=== PATIENT | female | born 1955 | race Caucasian/White ===

== ENCOUNTER 2017-06-09 10:05 | Observation (INO) | payer OTHER ==
[~2017-06-09] VITALS: Ht 172.7 cm; Wt 75.0 kg
--- NOTE | ~2017-06-09 | CR72 ---
[facility] A Service of [facility] & [facility] RADIOLOGY TEXT RESULTS PATIENT: DREW LOOMIS LOCATION: [facility] : 59 UNIT #: [id number] AGE: [address]: Rishabh Garcia MD SEX: F ORDER DR: [id number] [facility] [address] [place], [place] [address] [id number] E MR#: [id number] Acc #: [id number] NAME: DREW LOOMIS : 1955 SEX: F STUDY DATE/TIME: 06/09/2017 10:44 UNIT: [facility] ROOM: STUDY DESCRIPTION: CR Chest Single View Portable Attending Physician: Rishabh Garcia M.D. Ordering Physician: Rishabh Garcia M.D. Primary Care Physician: Cricket Rosario M.D. MEDICAL IMAGING REPORT This report is preliminary unless electronic signature is present EXAM Chest portable, 06/09/2017 10:44 hours HISTORY 62-year-old woman complaining of anterior chest pain today. History of hypertension. COMPARISON 09/26/2011 FINDINGS Portable upright chest demonstrates heart size within normal limits. Aortic contours are normal. Pulmonary vascularity is within normal limits. Lung volumes are increased compared to prior study. There are calcified granulomatous changes. No definite edema, pneumonia or effusion. IMPRESSION Lung volumes are increased compared to 09/26/2011. There are no acute cardiopulmonary findings. Dictated by... Belen Echevarria M.D. THIS IS AN ELECTRONICALLY VERIFIED REPORT Belen Echevarria M.D. at 06/09/2017 2:31 PM Amberly TD: 06/09/2017 11:43 JOB #: [id number] MEDICAL IMAGING REPORT Page 1 of 1 COPY
--- NOTE | ~2017-06-09 | CT16 ---
[facility] A Service of [facility] & [facility] RADIOLOGY TEXT RESULTS PATIENT: DREW LOOMIS LOCATION: [facility] 549-01 : [birth year] UNIT #: [id number] AGE: [address]: Yvonne Lynne MD SEX: F ORDER DR: [id number] [facility] [address] [place], [place] [address] [id number] E MR#: [id number] Acc #: [id number] NAME: DREW LOOMIS : 1955 SEX: F STUDY DATE/TIME: 06/09/2017 11:47 UNIT: [facility] ROOM: STUDY DESCRIPTION: CT Angio Chest for PE Attending Physician: Rishabh Garcia M.D. Ordering Physician: Rishabh Garcia M.D. Primary Care Physician: Cricket Rosario M.D. MEDICAL IMAGING REPORT This report is preliminary unless electronic signature is present EXAM CT angiogram of the chest INDICATIONS Chest pain since this morning. TECHNIQUE Axial CT images were obtained from the thoracic inlet through the dome of the diaphragm and following administration of intravenous contrast material. Following this 3-D reformatted images were obtained. This CT exam was performed with one or more of the following radiation dose reduction techniques: automatic control, adjustment of mA and/or kV according to patient size, and iterative reconstruction. FINDINGS No acute pulmonary thromboembolus is seen. Thoracic aorta measures within normal size limits. Patient does have fairly extensive atherosclerotic involvement of the thoracic aorta. There is no pleural or pericardial effusion. The thyroid gland trachea and esophagus appear unremarkable. Background emphysematous changes are present. There are some tree-in-bud infiltrates identified within the upper lobes bilaterally. A few punctate noncalcified pulmonary nodules are seen within the right lung mediastinal lymph nodes do not appear pathologically enlarged. No acute abnormality is seen within the upper abdomen. Review of bony windows does not demonstrate any aggressive osseous abnormalities. IMPRESSION 1. No acute pulmonary thromboembolus seen. 2. Thoracic aorta is normal in caliber although there is atherosclerotic involvement of the aorta. 3. A few tree-in-bud infiltrates identified at the lung apices [facility] A Service of [facility] & [facility] RADIOLOGY TEXT RESULTS PATIENT: DREW LOOMIS LOCATION: [facility] 549-01 : [birth year] UNIT #: [id number] AGE: [address]: Yvonne Lynne MD SEX: F ORDER DR: bilaterally as well as two tiny noncalcified pulmonary nodules seen within the right lung, these are favored to be infectious or inflammatory in etiology. Follow up CT in 1 year is suggested given background emphysematous changes Dictated by... Jennifer Santillan M.D. THIS IS AN ELECTRONICALLY VERIFIED REPORT Jennifer Santillan M.D. at 06/09/2017 5:06 PM SUSANA/isabel TD: 06/09/2017 13:36 JOB #: [id number] MEDICAL IMAGING REPORT Page 1 of 1 COPY
--- NOTE | ~2017-06-09 | EKG ---
PATIENT: DREW LOOMIS UNIT #: [id number] Ventricular Rate: 61 BPM Atrial Rate: 61 BPM P-R Interval: 144 ms QRS Duration: 152 ms Q-T Interval: 508 ms QTC Calculation(Bezet): 511 ms P [place]: 43 degrees Calculated R [place]: 8 degrees Calculated T [place]: -74 degrees Diagnosis Line: Normal sinus rhythm Diagnosis Line: Left bundle branch block Diagnosis Line: Abnormal ECG Diagnosis Line: When compared with ECG of 28-SEP-2011 06:17, Diagnosis Line: no Diagnosis Line: Confirmed by TOM LOCK MD ([id number]) on Diagnosis Line: 06/09/2017 3:55:00 PM INTERPRETING MD: ZAC
--- NOTE | ~2017-06-09 | HP ---
Unit #: [id number] #: [id number] Patient: DREW LOOMIS [id number] [facility]. [place] [id number] [place], [place] [address] [id number] I MR#: [id number] NAME: DREW LOOMIS ROOM: 23670 Age: 62 Sex: F Admission Date: 06/09/2017 : 1955 Attending Physician: Yvonne Lynne M.D. Primary Care Physician: Cricket Rosario M.D. HISTORY AND PHYSICAL HISTORY OF PRESENT ILLNESS This is a 52-year-old white female who was seen by our group in 2010 for chest pain. She underwent Lexiscan Cardiolite stress test which was abnormal, with anteroseptal and inferoapical wall ischemia. Her ejection fraction was 40%-45% per echocardiogram. She underwent cardiac catheterization and was found to have angiographically normal coronaries. The patient was discharged home on beta mack and MICHELE inhibitor, but failed to follow up with cardiology. She presented to the emergency room with substernal chest pressure that was not radiating to her neck, arm or jaw. Chest pressure awakened her from sleep at 6 a.m. She had associated dyspnea, nausea and vomiting. The chest pain was constant, with no alleviating or aggravating factors. She took an aspirin at home. She came to the emergency room for evaluation, where she was found to have negative cardiac enzymes and troponin. Her electrocardiogram shows old left bundle branch block. There were no acute ischemia changes. She was given three sublingual nitroglycerin that did not relieve her chest pain. There was also no relief with morphine. CTA of the chest shows no evidence of pulmonary embolism. She was hypertensive with blood pressure 198/81 mmHg. She was also noted to be bradycardic, and heart rate has been as low at 30 beats per minute. PAST MEDICAL HISTORY 1. Two-dimensional echocardiogram 09/27/2011 shows an ejection fraction of 40%-45% with mild tricuspid regurgitation. There was significant echo dropout noted. Cannot rule out PFO or AFB. 2. Lexiscan Cardiolite stress test 09/27/2011 showed a small area of stress induced ischemia involving the anteroseptal and inferoapical wall of the left ventricle. Ejection fraction 47%. Septal (1) . 3. Cardiac catheterization 09/28/[address] Alvarado at [facility]. [facility] revealed angiographically normal coronaries. Ejection fraction of 45%. 4. Hyperlipidemia. 5. Chronic left bundle branch block. 6. Nonischemic cardiomyopathy. 7. History of Grave disease. 8. Former smoker. PAST SURGICAL HISTORY 1. Cholecystectomy. 2. Appendectomy. 3. Uterine ablation. 4. Left breast lumpectomy. 5. Cervical disc decompression. Unit #: [id number] #: [id number] Patient: DREW LOOMIS SOCIAL HISTORY The patient is a . She quit smoking five year ago, but previously smoked up to three packs of cigarettes a day. She denies illicit drug and alcohol use. She states she lives a sedentary lifestyle. FAMILY HISTORY Positive for coronary artery disease in her father. ALLERGIES Codeine. HOME MEDICATIONS No current medications. REVIEW OF SYSTEMS CONSTITUTIONAL: Negative for fever or chills. Has no weight gain or weight loss. HEENT: No headache. No vision changes or difficulty with swallowing. No dizziness. CARDIOVASCULAR: Chest pain as described in the history of present illness. Denies palpitations. No paroxysmal nocturnal dyspnea or orthopnea. Denies syncope or near syncope. RESPIRATORY: Dyspnea that accompanies chest pain. No cough or hemoptysis. GASTROINTESTINAL: Has some slight epigastric pain with nausea and vomiting. No constipation or melena. EXTREMITIES: Denies lower extremity edema. PHYSICAL EXAMINATION GENERAL: This is a 62-year-old white female who is in no acute respiratory distress. VITALS: Blood pressure 198/81, heart rate 50, temperature 98.0, BMI 25. NECK: Trachea midline. No thyromegaly or lymphadenopathy. No jugular venous distension. HEART: S1 and S2. Heart sounds are normal. No murmurs, rubs or clicks. Regular rate and rhythm. Noted to be bradycardic. ABDOMEN: Tender in the epigastric area with palpation. No organomegaly. Bowel sounds are present. EXTREMITIES: Pedal pulses are palpable without leg edema. SKIN: Warm and dry. NEUROLOGIC: She is awake, alert and oriented. There is no focal weakness. DIAGNOSTIC STUDIES IMAGING: Chest x-ray shows low lung volumes. There is no edema, pneumonia or effusion. CT angiogram of the chest shows no acute thromboembolism. There are free tree-in-bud infiltrates identified in the lung apices bilaterally. There are two noncalcified pulmonary nodules in the right lung. Follow up in one year is suggested, given background emphysematous changes. LABORATORY: Glucose 142, BUN 15, creatinine 0.8, sodium 139, potassium 4.3, CK-MB 1.5, troponin less than 0.05 times 2. White blood cell count 13.8, hemoglobin 15.5, hematocrit 45.8, platelet count 305. CARDIOVASCULAR: Electrocardiogram normal sinus rhythm with a rate of 63 Unit #: [id number] #: [id number] Patient: DREW LOOMIS beats per minute with left bundle branch block. No acute ischemic changes. ASSESSMENT 1. Chest pain. Questionable etiology. 2. Normal coronaries per cardiac catheterization in 2010. 3. Chronic left bundle branch block. 4. Nonischemic cardiomyopathy with an ejection fraction of 40%-45%. 5. Hyperlipidemia. 6. Questionable chronic obstructive pulmonary disease. PLAN 1. Cardiology was asked to see the patient in the emergency room for chest pain. There was questionable etiology of the patient's chest pain. She had normal coronaries per cardiac catheterization in 2010. Will continue to trend cardiac enzymes, troponin, electrocardiogram to rule out myocardial infarction. 2. Start the patient on MICHELE inhibitor, given hypertension. 3. Lipid profile and TSH will be obtained. 4. Will repeat two-dimensional echocardiogram to evaluate left ventricular systolic function. 5. Monitor heart rate for significant bradyarrhythmias. 6. If the patient has negative troponin and no changes in electrocardiogram, will plan to discharge home in the a.m. 7. CT of the chest will need to be followed up in one year for pulmonary nodules. Dictated by Yovany Campoverde A.P.R.N. for Marco Lomax TD: 06/09/2017 15:52 JOB #: [id number] CC: [facility] HISTORY AND PHYSICAL Page 1 of 1 X Yovany Campoverde APRN HISTORY AND PHYSICAL
--- NOTE | ~2017-06-09 | DS ---
Unit #: [id number] #: [id number] Patient: DREW LOOMIS [id number] [address] [address] [id number] I MR#: [id number] NAME: DREW LOOMIS ROOM: 549 Age: 62 Sex: F Admission Date: 06/09/2017 : 1955 Discharge Date: 06/10/2017 Attending Physician: Yvonne Lynne M.D. Primary Care Physician: Cricket Rosario M.D. DISCHARGE SUMMARY DISCHARGE DIAGNOSES 1. Chest pain, atypical. 2. Cardiac catheterization in 2010 showed normal coronaries. 3. Chronic left bundle branch block. 4. Nonischemic cardiomyopathy with ejection fraction 40% to 45%. 5. Hypertension. 6. Hyperlipidemia. 7. Questionable chronic obstructive pulmonary disease. 8. Reformed tobacco user. DISCHARGE MEDICATIONS 1. Zestril 10 mg p.o. twice a day. 2. Aspirin 81 mg p.o. daily. 3. Lipitor 40 mg p.o. once a day. HOSPITAL COURSE This is a 52-year-old, female who was first seen by our group in 2010 for chest pain. At that time, she underwent a Lexiscan Cardiolite stress test, which was abnormal with anteroseptal and inferoapical wall ischemia. Her EF at that time was 40% to 45% per echocardiogram. She underwent a cardiac catheterization then and was found to have angiographically normal coronaries and was discharged home on a beta-mack and MICHELE inhibitor. The patient, however, never followed up with cardiology and did not take her beta-mack and MICHELE inhibitor. This admission, she presented to the ER with substernal chest pressure that was nonradiating. States the pain awakened her from sleep at 6:00 a.m. and it felt like heaviness and pressure and was associated with dyspnea, nausea, and vomiting. The patient was constant with no alleviating or aggravating factors. She took aspirin at home and presented to the ER where she was found to have negative cardiac enzymes. Her EKG showed an old left bundle branch block and no acute ischemic changes. She was given sublingual nitroglycerin, which did not relieve her chest pain, as well as morphine, which did not relieve her chest pain. A CT of the chest was done, which was negative for PE. She was, however, hypertensive in the ER. Her blood pressure was 198/81 and her heart rate was bradycardic at 30 beats per minute. She was started on lisinopril and admitted for observation. Her enzymes have remained negative. She denies any recurrence of the chest pain. States she is a little sore in her chest still. She is currently stable and ready for discharge home. I have a long discussion with her regarding her medications. States she stopped taking her beta-mack and MICHELE inhibitor before because she did not need it. Discussed the need for her MICHELE inhibitor for her blood pressure and her cardiomyopathy. Patient verbalizes an understanding of this. Discussed the need to follow up with a MD regularly. Patient does not want to follow up with cardiology at Unit #: [id number] #: [id number] Patient: DREW LOOMIS this time. We will discharge her home with prescriptions and refills for five months. She needs to follow up with her primary care doctor in 1-2 weeks. ASSESSMENT VITAL SIGNS: Temp 98.8, heart rate 69, respiratory rate 18, and blood pressure 156/66. GENERAL: This is an alert and oriented x3, female resting in bed in no acute distress. HEART: S1 and S2. Regular rate and rhythm. No murmurs, rubs, or gallops. LUNGS: Clear. Nonlabored respirations. ABDOMEN: Soft, nontender, and nondistended. EXTREMITIES: Pulses are palpable. No pedal edema. No cyanosis. DIAGNOSTIC STUDIES LABORATORY RESULTS: Sodium 141, potassium 3.9, chloride 104, BUN 10, creatinine 0.7, and glucose 100. White blood cell count 10.3, hemoglobin 13.7, hematocrit 40.2, and platelets 244. TSH is 0.89. Troponin is 0.03 x2. Lipid profile: Cholesterol 243, triglycerides 185, LDL 160, and HDL 46. CARDIOVASCULAR: Normal sinus rhythm on the monitor. DISCHARGE INSTRUCTIONS 1. Lipitor 40 mg p.o. once a day. 2. Follow up with primary care doctor in 1-2 weeks. 3. Discharge home. 4. Medications per home medication reconciliation sheet. 5. Prescriptions provided. Dictated by... MISSY Monae M.D. Rigoberto TD: 06/11/2017 12:06 JOB #: [id number] DISCHARGE SUMMARY Page 1 of 1 X X DISCHARGE SUMMARY
--- NOTE | ~2017-06-09 | EKG ---
PATIENT: DREW LOOMIS UNIT #: [id number] Ventricular Rate: 51 BPM Atrial Rate: 51 BPM P-R Interval: 144 ms QRS Duration: 162 ms Q-T Interval: 490 ms QTC Calculation(Bezet): 451 ms P [place]: 52 degrees Calculated R [place]: 2 degrees Calculated T [place]: -138 degrees Diagnosis Line: Sinus bradycardia Diagnosis Line: Left bundle branch block Diagnosis Line: Abnormal ECG Diagnosis Line: When compared with ECG of 09-JUN-2017 10:11, Diagnosis Line: QT has shortened Diagnosis Line: Confirmed by LEX STEVENS MD ([id number]) on 06/15/2017 Diagnosis Line: 7:29:00 AM INTERPRETING MD: RODNEY KATHLEEN
[~2017-06-09 10:05] MED LIST: COREG3.125 MG PO; FLEXERIL10 M1 PO; LISINOPRIL5 MG PO; MEDROL PO; MOTRIN400 MG PO; ULTRAM PO
[2017-06-09 10:45] LABS: BASOPHIL# 0.1 X10e3 (0-0.3); BASOPHIL% 0.5 % (0-2.5); EOSINOPHIL# 0.1 X10e3 (0-0.7); HEMATOCRIT 45.8 % (35.0-45.0); HEMOGLOBIN 15.5 gm/dL (12.0-16.0); LYMPHOCYTE# 2.8 X10e3 (1.0-3.5); LYMPHOCYTE% 20.1 % (17.0-45.0); MEAN CELL VOLUME 87.8 FL (83-96); MEAN CORPUSCULAR HEMOGLOBIN 29.8 PG (28-34); MEAN CORPUSCULAR HGB CONC 33.9 g/dL (30-36); MEAN PLATELET VOLUME 7.9 FL (6.5-11.5); MONOCYTE# 0.5 X10e3 (0-1.0); MONOCYTE% 3.7 % (3.0-12.0); NEUTROPHIL# 10.3 X10e3 (1.5-7.1); NEUTROPHIL% 74.7 % (40-75); PLATELET COUNT 305 X10e3 (140-420); RED BLOOD COUNT 5.21 X10e (3.90-5.30); RED CELL DISTRIBUTION WIDTH 13.8 % (11.0-15.5); WHITE BLOOD COUNT 13.8 X10e3 (4.0-10.5)
[2017-06-09 10:47] LABS: DIFF IND NO
[2017-06-09 10:57] LABS: INR 0.9; PARTIAL THROMBOPLASTIN TIME 25.8 SECONDS (23.5-31.3)
[2017-06-09 11:16] LABS: ALBUMIN SERUM 4.6 g/dL (3.5-5.0); BILIRUBIN, DIRECT 0.1 mg/dL (0.0-0.2); BILIRUBIN,INDIRECT 0.7 mg/dL (0.0-0.9); BILIRUBIN,TOTAL 0.8 mg/dL (0.2-2.0); BUN/CREATININE RATIO 18.75; CALCIUM SERUM 9.5 mg/dL (8.4-10.2); CREATININE SERUM 0.8 mg/dL (0.6-1.4); GLOM FILT RATE Estimated 80.2 mL/min (>60); POTASSIUM 4.3 mmol/L (3.5-5.1); PROTEIN TOTAL SERUM 8.2 g/dL (6.0-8.3)
[2017-06-09 11:28] LABS: POC - CKMB 1.1 ng/mL (0.0-7.9); POC - TROPONIN <0.05 ng/mL (<=0.05)
[2017-06-09 13:20] LABS: POC - CKMB 1.5 ng/mL (0.0-7.9); POC - TROPONIN <0.05 ng/mL (<=0.05)
[2017-06-09] MEDS ORDERED: ASPIRIN81 M2 PO (15:20)
[2017-06-09] MEDS ORDERED: NO MEDICATIONS (15:20)
[2017-06-09 18:08] LABS: %MB 2.7 % (0.0-4.0); MB 2.3 ng/ml
[2017-06-10 00:25] LABS: MB 2.5 ng/ml
[2017-06-10 06:05] LABS: HEMATOCRIT 40.2 % (35.0-45.0); HEMOGLOBIN 13.7 gm/dL (12.0-16.0); MEAN CORPUSCULAR HEMOGLOBIN 29.6 PG (28-34); RED BLOOD COUNT 4.63 X10e (3.90-5.30); RED CELL DISTRIBUTION WIDTH 14.1 % (11.0-15.5); WHITE BLOOD COUNT 10.3 X10e3 (4.0-10.5)
[2017-06-10 06:46] LABS: BUN/CREATININE RATIO 14.28; CREATININE SERUM 0.7 mg/dL (0.6-1.4); GLOM FILT RATE Estimated 94.2 mL/min (>60); POTASSIUM 3.9 mmol/L (3.5-5.1)
[2017-06-10] MEDS ORDERED: ZESTRIL10 M1 PO (13:41)
[2017-06-10] MEDS ORDERED: LIPITOR40 MG PO (13:41)
== END 2017-06-10 14:14 | disposition home or self-care (01) ==
LOC: CED 10:05 → C5B 14:57 → CEDOF 14:57 → CED 15:47 → CEDOF 15:47 → C5B 16:13
PROVIDERS: Emergency Medicine; Internal Medicine Cardiovascular Disease
DX: R07.89 Other chest pain (principal); I44.7 Left bundle-branch block, unspecified; I10 Essential (primary) hypertension; I34.0 Nonrheumatic mitral (valve) insufficiency; E78.5 Hyperlipidemia, unspecified; I42.9 Cardiomyopathy, unspecified; E05.00 Thyrotoxicosis with diffuse goiter without thyrotoxic crisis or storm; Z87.891 Personal history of nicotine dependence; Z88.8 Allergy status to other drugs, medicaments and biological substances
CPT/HCPCS: 36415; 71010; 71275; 80048; 80061; 80076; 82550; 82553; 83690; 84443; 84484; 85025; 85027; 85610; 85730; 93005; 93306; 96372; 96374; 96375; 96376; 99285; C9113; G0378; J1650; J2270; J2405; J2765; Q9967